=== PATIENT | female | born 1980 | race Caucasian/White ===

== ENCOUNTER 2020-01-25 14:38 | Emergency (ER) | payer OTHER ==
[~2020-01-25] VITALS: Ht 177.8 cm; Wt 88.5 kg
[2020-01-25 14:41] VITALS: Ht 177.8 cm; Wt 88.5 kg
[2020-01-25 17:18] VITALS: BP 118/73
== END 2020-01-25 17:18 | disposition home or self-care (01) ==
LOC: ED 14:38
DX: S92.351D Displaced fracture of fifth metatarsal bone, right foot, subsequent encounter for fracture with routine healing (principal); J45.909 Unspecified asthma, uncomplicated; X58.XXXD Exposure to other specified factors, subsequent encounter
CPT/HCPCS: J1885

== ENCOUNTER 2020-04-24 17:18 | Emergency (ER) | payer OTHER ==
[~2020-04-24] VITALS: Ht 180.3 cm; Wt 91.2 kg
[2020-04-24 17:22] VITALS: Ht 180.3 cm; Wt 91.2 kg
[2020-04-24 17:58] LABS: BASOPHIL % 1.9 % (0-2); PLATELET COUNT 278 x10^3mcL (130-400)
[2020-04-24 18:00] LABS: RED CELL DISTRIBUTION WIDTH 15.6 % (11.5-14.5)
[2020-04-24 18:11] LABS: CALCIUM 8.8 mg/dL (8.5-10.1); CARBON DIOXIDE 30.4 mmol/L (21-32); CHLORIDE SERUM 105 mmol/L (98-107); CREATININE SERUM 1.1 mg/dL (0.6-1.0); GFR1 59 mL/min; GLUCOSE SERUM 97 mg/dL (74-106); POTASSIUM SERUM 3.8 mmol/L (3.5-5.1); SODIUM SERUM 143 mmol/L (136-145)
[2020-04-24 18:17] LABS: ALBUMIN 3.6 g/dL (3.4-5.0); ALKALINE PHOSPHATASE 54 U/L (46-116); ALT/SGPT 24 U/L (14-59); AST/SGOT 20 U/L (15-37); BILIRUBIN TOTAL 0.2 mg/dL (0.20-1.00); MAGNESIUM 1.8 mg/dL (1.8-2.4); TOTAL PROTEIN, SERUM 7.1 g/dL (6.4-8.2)
[2020-04-24 18:23] LABS: AMPHETAMINE QUAL UR NONE DETECTED (See below)
[2020-04-25 04:09] VITALS: BP 119/78
== END 2020-04-25 07:09 | disposition home or self-care (01) ==
LOC: ED 17:18
PROVIDERS: Emergency Medicine
DX: F10.129 Alcohol abuse with intoxication, unspecified (principal); R45.851 Suicidal ideations; J45.909 Unspecified asthma, uncomplicated; Z98.890 Other specified postprocedural states
CPT/HCPCS: G0480; J3411; J3490; J7030

== ENCOUNTER 2020-10-10 17:29 | Emergency (ER) | payer OTHER ==
[~2020-10-10] VITALS: Ht 180.3 cm; Wt 82.6 kg
[2020-10-10 17:56] VITALS: BP 127/82; Ht 180.3 cm; Wt 82.6 kg
== END 2020-10-10 20:09 | disposition left against medical advice (07) ==
LOC: ED 17:29
DX: Z53.21 Procedure and treatment not carried out due to patient leaving prior to being seen by health care provider (principal)

== ENCOUNTER 2020-12-29 15:34 | Emergency (ER) | payer OTHER ==
[~2020-12-29] VITALS: Ht 177.8 cm; Wt 86.6 kg
[2020-12-29 15:38] VITALS: Ht 177.8 cm; Wt 86.6 kg
[2020-12-29 17:46] VITALS: BP 118/77
== END 2020-12-29 17:46 | disposition home or self-care (01) ==
LOC: ED 15:34
DX: F10.10 Alcohol abuse, uncomplicated (principal); L03.811 Cellulitis of head [any part, except face]; J45.909 Unspecified asthma, uncomplicated; G43.909 Migraine, unspecified, not intractable, without status migrainosus; Z13.9 Encounter for screening, unspecified; Z98.890 Other specified postprocedural states

== ENCOUNTER 2021-01-21 04:06 | Emergency (ER) | payer MEDICAID ==
[2021-01-21 04:16] VITALS: Ht 177.8 cm
[2021-01-21 04:52] VITALS: BP 122/83
== END 2021-01-21 04:52 | disposition home or self-care (01) ==
LOC: ED 04:06
DX: F10.10 Alcohol abuse, uncomplicated (principal); J45.909 Unspecified asthma, uncomplicated; G43.909 Migraine, unspecified, not intractable, without status migrainosus; Z02.79 Encounter for issue of other medical certificate; Z88.8 Allergy status to other drugs, medicaments and biological substances

== ENCOUNTER 2021-01-23 15:20 | Emergency (ER) | payer MEDICAID ==
[~2021-01-23] VITALS: Ht 177.8 cm; Wt 88.0 kg
[2021-01-23 15:31] VITALS: Ht 177.8 cm; Wt 88.0 kg
[2021-01-23] MEDS ORDERED: AMBIEN5 MG PO (16:16)
[2021-01-23 16:42] VITALS: BP 130/87
== END 2021-01-23 16:42 | disposition home or self-care (01) ==
LOC: ED 15:20
DX: G47.00 Insomnia, unspecified (principal); F10.10 Alcohol abuse, uncomplicated; J45.909 Unspecified asthma, uncomplicated; F31.9 Bipolar disorder, unspecified; G43.909 Migraine, unspecified, not intractable, without status migrainosus; Z98.890 Other specified postprocedural states; Z88.8 Allergy status to other drugs, medicaments and biological substances